=== PATIENT | male | born 1985 | race Caucasian/White ===

== ENCOUNTER 2017-03-22 10:36 | Emergency (ER) | payer OTHER ==
[~2017-03-22] VITALS: Ht 177.8 cm; Wt 122.3 kg
[2017-03-22 10:41] VITALS: TEMP 36.7; Ht 177.8 cm; Wt 122.3 kg
--- NOTE | 2017-03-22 11:16 | DIAGNOSTIC IMAGING REPORT ---
CHEST ONE VIEW PORTABLE HISTORY: 32 years-old Male Mood Disorder COMPARISON: None available TECHNIQUE: Portable upright AP view of the chest FINDINGS: The cardiomediastinal and hilar silhouettes are within normal limits. There is no pneumothorax, pleural effusion, focal airspace consolidation or overt pulmonary edema. Bones are grossly intact. IMPRESSION: No acute cardiopulmonary process. The above report was generated using voice recognition software. It may contain grammatical, syntax or spelling errors. Electronically signed by: Alonzo Falk M.D. 03/22/2017 11:15 AM Dictated Date/Time: 03/22/2017 11:14 AM
[2017-03-22 11:20] LABS: URINE APPEARANCE CLEAR (CLEAR); URINE BILIRUBIN NEG (NEG); URINE COLOR YELLOW; URINE NITRITE NEG (NEG); URINE PH 6.5 (4.5-7.5); URINE SPECIFIC GRAVITY 1.022 (1.000-1.030); UROBILINOGEN NEG (NEG)
[2017-03-22 11:24] LABS: MANUAL MICROSCOPIC REQUIRED? NO; REVIEW REQ? NO
[2017-03-22 11:45] LABS: BENZODIAZEPINE, URINE NEG (NEG); COCAINE,URINE NEG (NEG); PHENCYCLIDINE, URINE NEG (NEG)
[2017-03-22 12:20] LABS: BASO % 0.4 %; BASO ABS # 0.03 K/uL (0-0.2); COMPLETE YES; EOS % 1.9 %; IG% 0.3 %; LYMPH % 29.4 %; MEAN CELL VOLUME 88.4 fL (80-100); MEAN CORPUSCULAR HEMOGLOBIN 30.7 pg (25-34); MEAN CORPUSCULAR HGB CONC 34.8 g/dl (32-36); MEAN PLATELET VOLUME 10.6 fL (7.4-10.4); MONO % 8.3 %; NEUT % 59.7 %; PLATELET COUNT 199 K/uL (130-400); RED BLOOD COUNT 4.98 M/uL (4.7-6.1); WHITE BLOOD COUNT 7.49 K/uL (4.8-10.8)
[2017-03-22] MEDS ORDERED: PRLSR20 PO (12:36)
[2017-03-22 12:52] LABS: BUN/CREATININE RATIO 11.5 (10-20); CALCIUM 9.1 mg/dl (8.5-10.1); CREATININE 0.87 mg/dl (0.60-1.40); POTASSIUM 3.8 mmol/L (3.5-5.1)
[2017-03-22 13:02] LABS: THYROID STIMULATING HORMONE 1.12 uIu/ml (0.300-4.500)
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
[2017-03-22] MEDS ORDERED: LORAZEPAM 1 MG TAB SL STA (21:59)
--- NOTE | 2017-03-22 23:27 | EMERGENCY ROOM VISIT NOTE ---
ED Visit Note The patient was given Ativan sublingual awaiting transportation to the [facility] in [place].
[2017-03-23 00:46] VITALS: BP 152/79; PULSE 75; O2SAT 96
== END 2017-03-23 00:47 | disposition short-term general hospital (02) ==
LOC: EDBD 10:36 → C.EDA 10:37
DX: R45.851 Suicidal ideations (principal); F32.9 Major depressive disorder, single episode, unspecified; F12.90 Cannabis use, unspecified, uncomplicated